=== PATIENT | male | born 1980 | race African-American/Black ===

== ENCOUNTER 2024-06-13 09:08 | Emergency (ER) | payer SELFPAY ==
[2024-06-13 09:46] LABS: Absolute Basophils 0.1 K/uL (0-0.5); Absolute Eosinophils 0.3 K/uL (0-0.5); Absolute Lymphocytes (CBC) 3.8 K/uL (0.7-4.9); Absolute Monocytes 0.9 K/uL (0.1-1.3); Absolute Neutrophil 4.8 K/uL (1.8-8.0); Basophils % 0.7 % (0-1.3); Eosinophils % 2.7 % (0-4.4); Hematocrit 40.2 % (39.6-49.0); Hemoglobin 13.6 g/dL (13.6-17.9); Lymphocytes % 38.8 % (15.3-44.8); MCH 29.9 pg (27.0-35.0); MCHC 33.9 g/dL (32.0-36.0); MCV 88.4 fL (80-100); MPV 9.4 fL (7.6-11.3); Monocytes % 8.8 % (3.3-12.3); Platelets 257 thou/uL (152-406); RBC Red Blood Cell Count 4.54 M/uL (4.33-5.43); Red Cell Distribution Width 14.9 % (12.1-15.2)
[2024-06-13] MEDS ORDERED: NA CHLORIDE 0.9% 1,000 ML ONE (09:46)
[2024-06-13] MEDS ORDERED: FAMOTIDINE 20 MG/2 ML VIAL IV ONE (09:46)
[2024-06-13 10:03] LABS: Anion Gap 9.4 mEq/L (5.0-15.0); Potassium 3.4 mEq/L (3.5-5.1); Troponin High Sensitivity 48.6 pg/mL (<58.9)
[2024-06-13] MEDS ORDERED: MAGNES/ALUMIN/SIMET 30ML UCUP ONE (10:13)
[2024-06-13] MEDS ORDERED: LIDOCAINE VISCOUS 2% 10ML ORAL SOLN ONE (10:13)
--- NOTE | 2024-06-13 11:26 | RAD REPORT ---
EXAMINATION: ONE VIEW CHEST XR CLINICAL INDICATION: CHEST PAIN TECHNIQUE: Frontal chest projection is submitted. Examination is limited by patient positioning and t echnique. COMPARISON: No prior exam. FINDINGS: The lungs are well inflated and clear. The heart is upper limit of normal in size. No displaced fract ures identified. IMPRESSION: No acute intrathoracic abnormalities.
--- NOTE | 2024-06-13 12:24 | EDPHYS ---
Physician Documentation [facility] Name: Torito Collado Age: 44 yrs Sex: Male : 1980 Arrival Date: 06/13/2024 Time: 09:08 Bed 19 Private MD: ED Physician Pawel Beckford HPI: 06/13 09:33 This 44 yrs old Black Male presents to ER via Unassigned with complaints of Breathing ec2 Difficulty, High Blood Pressure. 09:33 Patient arrives today for evaluation of chest tightness. Reports started last night. ec2 Patient reports chest tightness which he describes as indigestion rating from the upper abdomen to the chest. History of GERD and states this feels similar. Reports otherwise no vomiting, no diarrhea, no alcohol use.. Historical: - Allergies: 09:35 No Known Allergies; bp - PMHx: 09:35 Hypertensive disorder; bp - Immunization history:: Adult Immunizations up to date. - Infectious Disease History:: Denies. - Social history:: Smoking status: unknown. ROS: 09:34 Constitutional: as per hpi ec2 Exam: 09:34 Constitutional: GEN: NAD Head: atraumatic Eyes: EOMI Ears: External ears are ec2 normal. CV: regular rate LUNGS: no respiratory distress ABD: non-distended, soft, not guarding, not rigid SKIN: no evidence of rashes MSK: no evidence of trauma Vital Signs: 09:27 BP 160 / 99; Pulse 78; Resp 18; Temp 97.9(O); Pulse Ox 100% on R/A; Weight 90.72 kg; em1 Height 6 ft. 5 in. ; Pain 8/10; 11:54 BP 157 / 101; Pulse 77; Resp 16; Pulse Ox 100% ; bp 12:46 BP 147 / 83; Pulse 71; Resp 16; Temp 98; Pulse Ox 98% ; bp 09:27 Body Mass Index 23.72 (90.72 kg, 195.58 cm) em1 09:27 Pain Scale: Adult em1 MDM: 09:19 Medical Screening Exam initiated ec2 09:34 Data reviewed: vital signs, nurses notes. ED course: Patient arrives today for ec2 evaluation of chest tightness. Examination yields nontoxic hemodynamically stable individuals otherwise in no acute distress. Will obtain a cardiac workup, treat for patient's reported indigestion. Differential include processes such as ACS, reflux, pancreatitis.. 09:51 ED course: EKG independently reviewed and interpreted by me, shows normal sinus rhythm, ec2 rate of 70, no acute ST segment elevations, intervals are nonactionable.. 10:07 ED course: Metabolic profile shows slight hypokalemia with potassium of 3.4. CBC ec2 reassuring, BNP within normal ranges, troponin 49. Lipase within normal ranges. Will obtain repeat EKG and troponin at 2-hour ju.. 11:51 ED course: Repeat EKG independently reviewed and interpreted by me, shows normal sinus ec2 rhythm, rate of 71, no acute ST segment elevations, intervals are nonactionable.. 12:23 ED course: Repeat troponin without significant change. On reassessment patient with ec2 marked improvement in symptoms. Will discharge and start patient on antiacid medications for gastritis.. 06/13 09:33 Order name: Basic Metabolic Panel; Complete Time: 10:06 ec2 06/13 09:33 Order name: CBC with Diff; Complete Time: 10:06 ec2 06/13 09:33 Order name: NT PRO-BNP; Complete Time: 10:06 ec2 06/13 09:33 Order name: Troponin HS; Complete Time: 10:06 ec2 06/13 09:33 Order name: Lipase; Complete Time: 10:06 ec2 06/13 11:39 Order name: Troponin High Sensitivity; Complete Time: 12:23 ec2 06/13 09:33 Order name: XRAY Chest (1 view); Complete Time: 11:39 ec2 06/13 09:33 Order name: Cardiac monitoring; Complete Time: 09:53 ec2 06/13 09:33 Order name: EKG - Nurse/Tech; Complete Time: 09:53 ec2 06/13 09:33 Order name: IV Saline Lock; Complete Time: 09:34 ec2 06/13 09:33 Order name: Labs collected and sent; Complete Time: 09:34 ec2 06/13 09:33 Order name: O2 Per Protocol; Complete Time: 09:38 ec2 06/13 09:33 Order name: O2 Sat Monitoring; Complete Time: 09:38 ec2 06/13 10:07 Order name: Misc. Order: repeat ekg/trop at 1145; Complete Time: 11:51 ec2 06/13 11:39 Order name: EKG - Nurse/Tech; Complete Time: 11:51 ec2 Administered Medications: 09:52 Drug: Famotidine IVP 20 mg IVP once; dilute with 10 mL 0.9% NaCl; give over 2 minutes bp Route: IVP; Site: left antecubital; 12:48 Follow up: Response: No adverse reaction bp 09:52 Drug: GI Cocktail with - (Maalox PO 30 ml, Lidocaine Mucous Membrane 2 % 20 bp ml, Phenobarbital-Belladonna PO 10 ml) PO once Route: PO; 12:48 Follow up: Response: No adverse reaction bp Disposition Summary: 06/13/24 12:24 Discharge Ordered Notes: Location: Home ec2 Condition: Stable ec2 Diagnosis - Gastritis, unspecified ec2 Followup: ec2 - With: Private Physician - When: - Reason: Re-evaluation by your physician Followup: ec2 - With: Milan Pandya MD - When: - Reason: Recheck today's complaints Discharge Instructions: - Discharge Summary Sheet ec2 - Gastritis, Adult ec2 Forms: - Medication Reconciliation Form ec2 - Antibiotic Education ec2 - Prescription Opioid Use ec2 - Patient Portal Instructions ec2 - Leadership Thank You Letter ec2 Prescriptions: - Pepcid 20 mg Oral Tablet - take 1 tablet ORAL route once daily; 20 tablet; Refills: 0, Product Selection ec2 Permitted Signatures: Dispatcher [employer] Alberto Schulz, RN RN Pawel Phan MD MD ec2 Corrections: (The following items were deleted from the chart) 09:33 09:33 BASIC METABOLIC PANEL+C.LAB.BRZ ordered. EDMS EDMS 09:33 09:33 CBC+H.LAB.BRZ ordered. EDMS EDMS 09:33 09:33 PROBNP+C.LAB.BRZ ordered. EDMS EDMS 09:33 09:33 Troponin High Sensitivity+C.LAB.BRZ ordered. EDMS EDMS 09:33 09:33 LIPASE+C.LAB.BRZ ordered. EDMS EDMS 09:33 09:33 Chest Single View+RAD.RAD.BRZ ordered. EDMS EDMS
--- NOTE | 2024-06-13 12:24 | ER ---
Nurse's Notes [facility] Name: Torito Collado Age: 44 yrs Sex: Male : 1980 Arrival Date: 06/13/2024 Time: 09:08 Bed 19 Private MD: Diagnosis: Gastritis, unspecified Presentation: 06/13 09:33 Chief complaint: Patient states: INDIGESTION AND HTN. Coronavirus screen: At this time, bp the client does not indicate any symptoms associated with coronavirus-19. Ebola Screen: No symptoms or risks identified at this time. Initial Sepsis Screen: Does the patient meet any 2 criteria? No. Patient's initial sepsis screen is negative. Does the patient have a suspected source of infection? No. Patient's initial sepsis screen is negative. Risk Assessment: Do you want to hurt yourself or someone else? Patient reports no desire to harm self or others. Onset of symptoms is unknown. 09:33 Method Of Arrival: Ambulatory bp 09:33 Acuity: BETTY 4 bp Triage Assessment: 09:35 General: Appears in no apparent distress. Behavior is cooperative, appropriate for age, bp anxious. Pain: Denies pain. EENT: No deficits noted. Neuro: No deficits noted. Cardiovascular: Rhythm is sinus rhythm. Respiratory: Reports shortness of breath Onset: The symptoms/episode began/occurred at an unknown time. the patient reports symptoms have resolved. GI: Reports indigestion. : No signs and/or symptoms were reported regarding the genitourinary system. Derm: No deficits noted. Musculoskeletal: No deficits noted. Historical: - Allergies: 09:35 No Known Allergies; bp - PMHx: 09:35 Hypertensive disorder; bp - Immunization history:: Adult Immunizations up to date. - Infectious Disease History:: Denies. - Social history:: Smoking status: unknown. Screenin:[address] [facility] ED Fall Risk Assessment (Adult) History of falling in the last 3 months, bp including since admission No falls in past 3 months (0 pts) Confusion or Disorientation No (0 pts) Intoxicated or Sedated No (0 pts) Impaired Gait No (0 pts) Mobility Assist Device Used No (0 pt) Altered Elimination No (0 pt) Score/Fall Risk Level 0 - 2 = Low Risk Oriented to surroundings. Abuse screen: Denies threats or abuse. Denies injuries from another. Nutritional screening: No deficits noted. Tuberculosis screening: No symptoms or risk factors identified. Assessment: 09:36 General: Appears in no apparent distress. Behavior is cooperative, appropriate for age, bp anxious. Cardiovascular: Patient's skin is warm and dry. Cardiovascular: Rhythm is sinus rhythm. Respiratory: Airway is patent Respiratory effort is even, unlabored, Breath sounds are clear bilaterally. GI: No signs and/or symptoms were reported involving the gastrointestinal system. : No signs and/or symptoms were reported regarding the genitourinary system. EENT: No deficits noted. Derm: No deficits noted. Musculoskeletal: No deficits noted. 11:54 Reassessment: REPEAT EKG/TROP COMPLETED. bp Vital Signs: 09:27 BP 160 / 99; Pulse 78; Resp 18; Temp 97.9(O); Pulse Ox 100% on R/A; Weight 90.72 kg; em1 Height 6 ft. 5 in. ; Pain 8/10; 11:54 BP 157 / 101; Pulse 77; Resp 16; Pulse Ox 100% ; bp 12:46 BP 147 / 83; Pulse 71; Resp 16; Temp 98; Pulse Ox 98% ; bp 09:27 Body Mass Index 23.72 (90.72 kg, 195.58 cm) em1 09:27 Pain Scale: Adult em1 ED Course: 09:08 Patient arrived in ED. mr 09:10 Pawel Beckford MD is Attending Physician. ec2 09:32 Alberto Taylor, RN is Primary Nurse. bp 09:34 Triage completed. bp 09:34 Initial lab(s) drawn, by me, sent to lab. Inserted saline lock: 20 gauge in left em1 antecubital area, using aseptic technique. Blood collected. Flushed with 10 mL NS. 09:34 EKG done, by ED staff, reviewed by Pawel Beckford MD. em1 09:35 Arm band placed on. bp 09:37 Patient has correct armband on for positive identification. bp 10:08 XRAY Chest (1 view) In Process Unspecified. EDMS 11:51 Troponin High Sensitivity Sent. em1 11:52 Repeat lab(s) drawn. by me, sent to lab. EKG done, by ED staff, reviewed by Pawel Beckford MD. 12:24 Milan Pandya MD is Referral Physician. ec2 12:47 No provider procedures requiring assistance completed. IV discontinued, intact, bp bleeding controlled, No redness/swelling at site. Pressure dressing applied. 12:47 Provided Education on: na. bp Administered Medications: 09:52 Drug: Famotidine IVP 20 mg IVP once; dilute with 10 mL 0.9% NaCl; give over 2 minutes bp Route: IVP; Site: left antecubital; 12:48 Follow up: Response: No adverse reaction bp 09:52 Drug: GI Cocktail with - (Maalox PO 30 ml, Lidocaine Mucous Membrane 2 % 20 bp ml, Phenobarbital-Belladonna PO 10 ml) PO once Route: PO; 12:48 Follow up: Response: No adverse reaction bp Outcome: 12:24 Discharge ordered by . ec2 12:47 Discharged to home ambulatory, bp 12:47 Condition: stable 12:47 Discharge instructions given to patient, Instructed on discharge instructions, follow up and referral plans. medication usage, Demonstrated understanding of instructions, follow-up care, medications, Prescriptions given X 1, 12:48 Patient left the ED. bp Signatures: Dispatcher [employer] EDLupe Pena, Reg Reg Ant Norman em1 Alberto Taylor, RN RN bp Pawel Beckford MD MD ec2
[2024-06-13 13:07] VITALS: BP 147/83; TEMP 98; O2SAT 98
--- NOTE | 2024-06-15 12:46 | EKG ---
Test Date: 2024-06-13 Test Time: 09:49:24 Oil Driller: LUIS DANIEL MEASUREMENT RESULTS: Intervals: Rate: 70 VT: 184 QRSD: 106 QT: 366 QTc: 395 Oral: P: 67 VT: 184 QRS: 52 T: 53 INTERPRETIVE STATEMENTS: Normal sinus rhythm Normal ECG No previous ECG available for comparison Electronically Signed On 06-15-24 12:42:01 GERIATRIC SOCIAL WORKER by Heloi Rao
--- NOTE | 2024-06-25 11:25 | EKG ---
Test Date: 2024-06-13 Test Time: 11:46:21 Html Developer: LUIS DANIEL MEASUREMENT RESULTS: Intervals: Rate: 71 AL: 180 QRSD: 112 QT: 378 QTc: 410 [place]: P: 65 AL: 180 QRS: 45 T: 55 INTERPRETIVE STATEMENTS: Normal sinus rhythm with sinus arrhythmia Normal ECG Compared to ECG 06/13/2024 09:49:24 No significant changes Electronically Signed On 06-25-24 11:16:30 RECRUITMENT OFFICER by Helio Rao
== END 2024-06-13 12:48 | disposition home or self-care (01) ==
LOC: ER 09:08
DX: K29.70 Gastritis, unspecified, without bleeding (principal)
CPT/HCPCS: 36415; 71045; 80048; 83690; 83880; 84484; 85025; 93005; 96374; 99285; J7030